=== PATIENT | female | born 1995 | race Caucasian/White ===

== ENCOUNTER 2018-11-04 11:56 | Emergency (ER) | payer OTHER ==
[2018-11-04] MEDS ORDERED: Ondansetron 4 MG Tab.DIS PO ONE ×2 (12:41→14:48)
[2018-11-04] MEDS ORDERED: Sodium Chloride 0.9% 10 ML Syringe FLUSH PRN (12:58)
[2018-11-04] MEDS ORDERED: Sodium Chloride 0.9% 1,000 ML IV SCH (13:00)
--- NOTE | 2018-11-04 13:57 | EDM.PDOC ---
ED HPI GENERAL MEDICAL PROBLEM - General Chief Complaint: Flank Pain Stated Complaint: FEVER/VOMITING Time Seen by Provider: 11/04/18 12:39 Source of Information: Reports: Patient, RN Notes Reviewed History Limitations: Reports: No Limitations - History of Present Illness INITIAL COMMENTS - FREE TEXT/NARRATIVE: Patient is a 23 year old female who presents to the ED for the evaluation of right sided lower back pain. She states that she went to the clinic yesterday with the same type of symptoms was found to have a UTI, she was given a script for antibiotics and nausea medications but was unable to fill these because the pharmacy was closed. She also had bloodwork done and that was within normal limits. The patient is still having nausea today and is unable to keep any type of food down. The pain in her back has worsened as well. She does deny any urinary symptoms like burning with urination or urgency/frequency. She denies being . There are 3 friends in the room have raised concerns because she has not "been herself" for the last 3 weeks. The patient does note that she has nausea, has vomited, and has had at least 5-6 episodes of diarrhea daily since then. She has not changed her diet in the last few weeks, nor does she remember eating any questionable foods or travel. Right Flank Pain Score (Numeric/FACES): 6 - Related Data Allergies Allergy/AdvReac Type Severity Reaction Status Date / Time No Known Allergies Allergy Verified 11/04/18 12:19 Home Meds: Home Meds Ondansetron [Zofran ODT] 4 mg PO Q6H PRN #20 tab.dis 11/04/18 [Rx] Sulfamethoxazole/Trimethoprim [Bactrim Ds Tablet] 1 each PO BID #13 tablet 11/04 [Rx] Past Medical History - Past Health History Medical/Surgical History: Denies Medical/Surgical History Social & Family History - Tobacco Use Smoking Status *Q: Never Smoker - Caffeine Use Caffeine Use: Reports: None - Recreational Drug Use Recreational Drug Use: No ED ROS GENERAL - Review of Systems Review Of Systems: See Below Constitutional: Reports: Fatigue. Denies: Fever, Chills, Weakness, Decreased Appetite, Weight Loss HEENT: Reports: No Symptoms Respiratory: Reports: No Symptoms Cardiovascular: Reports: No Symptoms Endocrine: Reports: No Symptoms GI/Abdominal: Reports: Diarrhea, Nausea, Vomiting. Denies: Abdominal Pain : Reports: Flank Pain (left) Musculoskeletal: Reports: Back Pain (low back pain) Skin: Reports: No Symptoms Neurological: Reports: No Symptoms Psychiatric: Reports: No Symptoms Hematologic/Lymphatic: Reports: No Symptoms Immunologic: Reports: No Symptoms ED EXAM, RENAL/ - Physical Exam Exam: See Below Exam Limited By: No Limitations General Appearance: Alert, WD/WN, No Apparent Distress Eye Exam: Bilateral Eye: EOMI, Normal Inspection, PERRL Ears: Normal External Exam, Normal Canal, Hearing Grossly Normal, Normal TMs, Other (excessive cerumen in bilateral canals) Nose: Normal Inspection, Normal Mucosa Throat/Mouth: Normal Inspection, Normal Oropharynx, No Airway Compromise Head: Atraumatic, Normocephalic Neck: Normal Inspection, Supple, Non-Tender, Full Range of Motion Respiratory/Chest: No Respiratory Distress, Lungs Clear, Normal Breath Sounds, No Accessory Muscle Use, Chest Non-Tender Cardiovascular: Normal Peripheral Pulses, Regular Rate, Rhythm, No Murmur GI/Abdominal: Normal Bowel Sounds, Soft, Non-Tender, No Organomegaly, No Distention, No Mass Back Exam: Normal Inspection, Full Range of Motion, CVA Tenderness (L). No: CVA Tenderness (R), Muscle Spasm, Paraspinal Tenderness Extremities: Normal Inspection, Normal Capillary Refill Neurological: Alert, Oriented, Normal Cognition, Normal Gait, Normal Reflexes, No Motor/Sensory Deficits Psychiatric: Normal Affect, Normal Mood Skin Exam: Warm, Dry, Intact, Normal Color, No Rash Course - Vital Signs Last Recorded V/S: Last Vital Signs Temp 98.2 F 11/04/18 12:11 Pulse 60 11/04/18 12:11 Resp 18 11/04/18 12:11 BP 130/84 11/04/18 12:11 Pulse Ox 100 11/04/18 12:11 - Orders/Labs/Meds Orders: Active Orders 24 hr Category Date Time Status Peripheral IV Care [RC] . DIRECTED Care 11/04/18 12:58 Active CULTURE URINE [RM] Stat Lab 11/04/18 12:18 Received Sodium Chloride 0.9% [Normal Saline] 1,000 ml Med 11/04/18 13:00 Active IV ASDIRECTED Sodium Chloride 0.9% [Saline Flush] Med 11/04/18 12:58 Active 10 ml FLUSH ASDIRECTED PRN Peripheral IV Insertion Adult [OM.PC] Routine Oth 11/04/18 12:58 Ordered Medication Orders Sodium Chloride (Normal Saline) 1,000 mls @ 999 mls/hr IV ASDIRECTED TARIK Last Admin: 11/04/18 13:25 Dose: 999 mls/hr Sodium Chloride (Saline Flush) 10 ml FLUSH ASDIRECTED PRN PRN Reason: Keep Vein Open Last Admin: 11/04/18 13:23 Dose: 10 ml Labs: Laboratory Tests 11/04/18 Range/Units 12:20 Urine Color Yellow (Yellow) Urine Appearance Clear (Clear) Urine pH 6.0 (5.0-8.0) Ur Specific [place] 1.015 (1.005-1.030) Urine Protein Negative (Negative) Urine Glucose (UA) Negative (Negative) Urine Ketones Negative (Negative) Urine Occult Blood 1+ H (Negative) Urine Nitrite Negative (Negative) Urine Bilirubin Negative (Negative) Urine Urobilinogen 0.2 (0.2-1.0) Ur Leukocyte Esterase Negative (Negative) Urine RBC 5-10 H (0-5) /hpf Urine WBC Not seen (0-5) /hpf Ur Epithelial Cells Not seen (0-5) /hpf Ur Squamous Epith Cells 5-10 H (0-5) /hpf Urine Bacteria Not seen (FEW) /hpf Urine Mucus Few (FEW) /hpf Meds: Medications Generic Name Dose Route Start Last Admin Trade Name Freq PRN Reason Stop Dose Admin Sodium Chloride 1,000 mls @ 999 mls/hr 11/04/18 13:00 11/04/18 13:25 Normal Saline IV 999 mls/hr ASDIRECTED TARIK Administration Sodium Chloride 10 ml 11/04/18 12:58 11/04/18 13:23 Saline Flush FLUSH 10 ml ASDIRECTED PRN Administration Keep Vein Open Discontinued Medications Generic Name Dose Route Start Last Admin Trade Name Freq PRN Reason Stop Dose Admin Ondansetron HCl 4 mg 11/04/18 12:41 11/04/18 13:25 Zofran Odt PO 11/04/18 12:42 4 mg ONETIME ONE Administration Ondansetron HCl 4 mg 11/04/18 14:48 11/04/18 15:05 Zofran Odt PO 11/04/18 14:49 4 mg ONETIME ONE Administration Trimethoprim/Sulfamethoxazole 1 tab 11/04/18 14:46 11/04/18 15:04 Septra Ds PO 11/04/18 14:47 1 tab ONETIME ONE Administration Trimethoprim/Sulfamethoxazole 1 tab 11/04/18 14:47 11/04/18 15:05 Septra Ds PO 11/04/18 14:48 1 tab ONETIME ONE Administration - Radiology Interpretation Free Text/Narrative:: CT abdomen and pelvis Technique: Multiple axial sections were obtained from above the dome of the diaphragm inferiorly through the pubic symphysis. Intravenous and oral contrast was not utilized. Study has been performed as a ureteral stone protocol. Comparison: No prior abdominal imaging. Findings: Visualized lung bases are clear. Noncontrast appearance of the liver and spleen appears within normal limits. Adrenal glands show no discrete nodule. Pancreas shows no discrete abnormality. Gallbladder contains no calcified gallstones. Aorta shows no aneurysm. No retroperitoneal adenopathy is seen. No mesenteric abnormalities are seen. Appendix is felt to be visualized and is normal in size. No pelvic mass or adenopathy is seen. No free fluid or inflammatory change is seen. Kidneys show no abnormal calcifications. No ureteral dilatation or ureteral stone is seen. Bone window settings were reviewed which appears within normal limits for the patient's age. Impression: 1. No renal calculi, ureteral dilatation or ureteral stone is seen. 2. Nothing acute is appreciated on noncontrast CT study of the abdomen and pelvis performed as a ureteral stone protocol. - Re-Assessments/Exams Free Text/Narrative Re-Assessment/Exam: 11/04/18 12:50 Pt presents to the ED for the evaluation of right sided lower back pain. Her UA is suggestive of possible kidney stone, have ordered 4mg zofran ODT for nausea with abdomen CT w/o contrast and IV bolus of fluids for initial management and further evaluation. Will not repeat labs today due to being normal yesterday, have recommended dietary modifications for alleviation of diarrhea symptoms with use of pepto bismol if needed. 11/04/18 14:53 CT did not demonstrate any kidney stone or other abdominal abnormality. Will treat for hemorrhagic cystitis. 1 tab bactrim to be given in ED with 1 tab to be sent home and 1 tab ODT zofran for home use tonight, with script for antibiotics and ODT zofran for home use. Departure - Departure Time of Disposition: 14:59 Disposition: Home, Self-Care 01 Condition: Fair Clinical Impression: UTI, Urinary tract infectious disease - Discharge Information *PRESCRIPTION DRUG MONITORING PROGRAM REVIEWED*: No *COPY OF PRESCRIPTION DRUG MONITORING REPORT IN PATIENT RAFAT: No Prescriptions: Ondansetron [Zofran ODT] 4 mg PO Q6H PRN #20 tab.dis PRN Reason: Nausea Sulfamethoxazole/Trimethoprim [Bactrim Ds Tablet] 1 each PO BID #13 tablet Referrals: PCP,Not In Area [Primary Care Provider] - Forms: ED Department Discharge Additional Instructions: You have been evaluated in the ED for lower back pain Your CT demonstrated no sign of kidney stone or other abdominal abnormality. You have been provided a script for antibiotics and anitnausea medication, these have been sent to [facility]; located on [facility] [address] [facility]. Please follow a clear liquid diet for the next 24-48 hours and advance to bland diet (banana, rice, applesauce, toast) as tolerated to help alleviate diarrhea symptoms. You may take pepto bismol for further diarrhea, this medication can make your stool turn black. Please return to ED if your symptoms change or worsen. - My Orders Last 24 Hours: My Active Orders 11/04/18 12:18 CULTURE URINE [RM] Stat 11/04/18 12:58 Peripheral IV Care [RC] . DIRECTED Sodium Chloride 0.9% [Saline Flush] 10 ml FLUSH ASDIRECTED PRN Peripheral IV Insertion Adult [OM.PC] Routine 11/04/18 13:00 Sodium Chloride 0.9% [Normal Saline] 1,000 ml IV ASDIRECTED - Assessment/Plan Last 24 Hours: My Active Orders 11/04/18 12:18 CULTURE URINE [RM] Stat 11/04/18 12:58 Peripheral IV Care [RC] . DIRECTED Sodium Chloride 0.9% [Saline Flush] 10 ml FLUSH ASDIRECTED PRN Peripheral IV Insertion Adult [OM.PC] Routine 11/04/18 13:00 Sodium Chloride 0.9% [Normal Saline] 1,000 ml IV ASDIRECTED
--- NOTE | 2018-11-04 14:14 | CT ---
CT abdomen and pelvis Technique: Multiple axial sections were obtained from above the dome of the diaphragm inferiorly through the pubic symphysis. Intravenous and oral contrast was not utilized. Study has been performed as a ureteral stone protocol. Comparison: No prior abdominal imaging. Findings: Visualized lung bases are clear. Noncontrast appearance of the liver and spleen appears within normal limits. Adrenal glands show no discrete nodule. Pancreas shows no discrete abnormality. Gallbladder contains no calcified gallstones. Aorta shows no aneurysm. No retroperitoneal adenopathy is seen. No mesenteric abnormalities are seen. Appendix is felt to be visualized and is normal in size. No pelvic mass or adenopathy is seen. No free fluid or inflammatory change is seen. Kidneys show no abnormal calcifications. No ureteral dilatation or ureteral stone is seen. Bone window settings were reviewed which appears within normal limits for the patient's age. Impression: 1. No renal calculi, ureteral dilatation or ureteral stone is seen. 2. Nothing acute is appreciated on noncontrast CT study of the abdomen and pelvis performed as a ureteral stone protocol. Diagnostic code #1
[2018-11-04] MEDS ORDERED: Sulfamethoxazole/Trimethoprim 800-160 MG Tab PO ONE ×2 (14:46→14:47)
== END 2018-11-04 15:22 | disposition home or self-care (01) ==
LOC: JD.ED 11:56
DX: N39.0 Urinary tract infection, site not specified (principal)
CPT/HCPCS: 74176; 81001; 87086; 87088; 96360; 99284; A9270; J7040; 99283